=== PATIENT | female | born 1990 | race Caucasian/White ===

== ENCOUNTER 2017-04-16 00:41 | Emergency (ER) | payer SELFPAY ==
[~2017-04-16] VITALS: Ht 160 cm; Wt 90.7 kg
[~2017-04-16 00:41] MED LIST: PRED20TA PO; PROAIR HFA8.5 GM INH
[2017-04-16 01:41] VITALS: BP 132/67
[2017-04-16] MEDS ORDERED: PREN1TAB58 PO (02:51)
--- NOTE | 2017-04-16 02:53 | PHYS DOC ---
Past Medical History Past Medical History: Asthma Past Surgical History: No Surgical History Alcohol Use: None Drug Use: None Adult General Chief Complaint Chief Complaint: MULTIPLE COMPLAINTS HPI HPI 26-year-old female presenting to the emergency department today with generalized congestion, patient has a sore throat and reports last menstrual period in the last 4 weeks. She also complains of tingling in her right hand and therefore between 1-2 weeks. She denies any recent trauma confusion cyanosis or lethargy. Review of systems is negative for chest pain shortness of breath fevers chills nausea vomiting. All other review of systems is negative unless otherwise noted in history of present illness. ED course: 26-year-old female presenting to the emergency Department generalized congestion sore throat ear pain and mild tingling in her right upper extremity. Vital signs afebrile with a normal heart rate. Urine test was positive. Strep test negative. Pertinent exam shows a soft nontender abdomen. Patient does not have abdominal pain or vaginal bleeding. Tympanic membranes are not erythematous. Otherwise remainder of the neurologic exam is unremarkable. Given the patient's new discovery of being I recommended patient follow-up with OB in the next 3 or 4 days. She was given strict discharge instructions to return to the emergency department if she developed abdominal pain or vaginal bleeding. Review of Systems Review of Systems SEE ABOVE. Allergies Allergies Allergies Coded Allergies Type Severity Reaction Last Updated Verified No Known Drug Allergies 06/06/16 No Physical Exam Physical Exam SEE ABOVE Constitutional: Well developed, well nourished, no acute distress, non-toxic appearance. HENT: Normocephalic, atraumatic, bilateral external ears normal, oropharynx moist, no oral exudates, nose normal. [] Eyes: PERRLA, EOMI, conjunctiva normal, no discharge. [] Neck: Normal range of motion, no tenderness, supple, no stridor. Cardiovascular:Heart rate regular rhythm, no murmur [] Lungs & Thorax: Bilateral breath sounds clear to auscultation Abdomen: Bowel sounds normal, soft, no tenderness, no masses, no pulsatile masses. [] Skin: Warm, dry, no erythema, no rash. Back: No tenderness, no CVA tenderness. [] Extremities: No tenderness, no cyanosis, no clubbing, ROM intact, no edema. [] Neurologic: Mental status: Awake oriented and alert x3 Cranial nerves: Extraocular movements intact, eyebrows adriano bilaterally smile symmetric, uvula elevation, shoulder shrug intact, tongue protrusion normal DTRs: 2+ Sensation: Patient reports mild decrease in sensation in the median nerve distribution. otherwise, similar bilateral Strength: 5/5 in upper and lower extremities bilaterally Psychologic: Affect normal, judgement normal, mood normal. [] Current Patient Data Vital Signs Vital Signs Date Time Temp Pulse Resp B/P (MAP) Pulse Ox O2 Delivery O2 Flow Rate FiO2 04/16/17 01:41 98.5 98 18 97 Room Air 98.5 Lab Values Laboratory Tests Test 04/16/17 02:10 POC Urine HCG, Qualitative Hcg positive (Negative) EKG EKG [] Radiology/Procedures Radiology/Procedures [] Course & Med Decision Making Course & Med Decision Making Pertinent Labs and Imaging studies reviewed. (See chart for details) [] Dragon Disclaimer Dragon Disclaimer This electronic medical record was generated, in whole or in part, using a voice recognition dictation system. Departure Departure Impression: Primary Impression: Disposition: HOME, SELF-CARE Condition: STABLE Referrals: NO PCP (PCP) ELIZABETH VEGA Jr, MD Patient Instructions: ABCs of Additional Instructions: Thank you for allowing us to participate in your care today. Followup with an OB in 5-7 days. Call your Primary Doctor tomorrow and inform them of your visit today. If you do not have a primary care provider you can ask for a list of our primary care providers. Return to the emergency department you have any new or concerning findings. This should be evaluated by the primary care physician and any necessary consulting services for continued management within a few days after discharge. Return to emergency room if you have any new or concerning symptoms including but not limited to fever, chills, nausea, vomiting, intractable pain, any new rashes, chest pain, shortness of air, uncontrolled bleeding, difficulty breathing, and/or vision loss. Scripts Vits W-Ca,Fe,Fa(<1MG) ( VITAMINS) 1 Each Tablet 1 TAB PO DAILY, #15 TAB 0 Refills Prov: RUPA BAIRES MD 04/16/17 RUPA BAIRES MD Apr 16, 2017 02:53
[2017-04-16 08:36] LABS: NEGATIVE OBC STREP NEG; POSITIVE OBC STREP POS
== END 2017-04-16 02:56 | disposition home or self-care (01) ==
LOC: ER 00:41
DX: Z33.1 Pregnant state, incidental (principal); J02.9 Acute pharyngitis, unspecified; R09.81 Nasal congestion; R20.2 Paresthesia of skin; H92.09 Otalgia, unspecified ear; J45.909 Unspecified asthma, uncomplicated
CPT/HCPCS: 81025; 87070; 87880; 99283